=== PATIENT | female | born 1970 | race Caucasian/White ===

== ENCOUNTER 2018-08-04 16:01 | Emergency (ER) | payer BC ==
--- NOTE | 2018-08-04 16:16 | UC ---
Headache HPI - HPI Summary HPI Summary: 48 yo female presents with headache. She tells me that she has a history of migraines and gets them anywhere from 2 to 10 times a month. They usually last 2 -3 days and consist of right sided headache with photophobia and generalized body fatigue. Today she tells me that for the past 5 days she has had a migraine that she describes as "vicious". The headache is located on the right side of her head and radiates to her right ear and right forehead. She reports feeling fatigued and has body wide pain for the last 5 days. She has been eating and drinking well except today she feels that she has a decreased appetite and hasn't wanted to eat anything, but denies nausea. She is diabetic and states her glucose was 193 this afternoon which is good for her as over the last week her glucose has been around 250. Last A1C was 8 - per pt within the last 6 months. Her BP is elevated today and she does have a hx of HTN. She has been taking her BP medication as prescribed. She states that her BP usually goes high when she gets a migraine due to the pain. She has taken her maxalt and fioricet for this migraine with no relief. She denies dizziness, vision changes, weakness, numbness, tingling, SOB, chest pain, palpitations, abdominal pain, vomiting, or injury. She also mentions that she has had pressure over her bladder and urinary frequency for the last 2 days. Denies hematuria, vaginal bleeding or discharge. - History Of Current Complaint Chief Complaint: UCGeneralIllness Stated Complaint: HEADACHE Time Seen by Provider: 08/04/18 16:11 Hx Obtained From: Patient Onset/Duration: Sudden Onset Initially Headache Was: Severe Currently Pain Is: Severe Pain Intensity: 10 Pain Scale Used: 0-10 Numeric - Allergies/Home Medications Allergies/Adverse Reactions: Allergies Allergy/AdvReac Type Severity Reaction Status Date / Time amoxicillin Allergy Intermediate vomitting Verified 08/04/18 16:11 erythromycin base Allergy Intermediate nausea Verified 08/04/18 16:11 vomitting Penicillins Allergy Intermediate vomitting Verified 08/04/18 16:11 Home Medications: Home Medications Atorvastatin* [Lipitor*] 10 mg PO 1700 08/04/18 [History Confirmed 08/04/18] Lisinopril 10 mg PO DAILY WITH MEAL 08/04/18 [History Confirmed 08/04/18] Sertraline* [Zoloft*] 25 mg PO DAILY 08/04/18 [History Confirmed 08/04/18] Topiramate [Topamax] 100 mg PO BID 08/04/18 [History Confirmed 08/04/18] metFORMIN* [Glucophage 500 MG TAB *] 500 mg PO BID 08/04/18 [History Confirmed 08/04/18] PMH/Surg Hx/FS Hx/Imm Hx Endocrine History: Diabetes Cardiovascular History: Hypertension Neurological History: Migraine Psychological History: Anxiety, Depression - Surgical History Surgical History: Yes Surgery Procedure, Year, and Place: APPENDECTOMY, - Social History Lives: With Family Alcohol Use: Rare Substance Use Type: None Smoking Status (MU): Former Smoker Review of Systems All Other Systems Reviewed And Are Negative: Yes Constitutional: Positive: Fatigue Skin: Positive: Negative Eyes: Positive: Negative ENT: Positive: Negative Respiratory: Positive: Negative Cardiovascular: Positive: Negative Gastrointestinal: Positive: Negative Genitourinary: Positive: Dysuria Motor: Positive: Negative Neurovascular: Positive: Negative Musculoskeletal: Positive: Negative Neurological: Positive: Headache Psychological: Positive: Negative Physical Exam - Summary Physical Exam Summary: GENERAL: NAD. WDWN. No pain distress. SKIN: No rashes, sores, ulcers, masses, lesions. HEENT: Head: AT/NC. Eyes: PERRLA. EOM intact. Conjunctiva clear without inflammation or discharge. Ears: Hearing grossly normal. TMs intact, no bulging, erythema, or edema. Nose: Nasal mucosa pink and moist. NTTP maxillary and frontal sinus. Throat: Posterior oropharynx without exudates, erythema, or tonsillar enlargement. Uvula midline. NECK: Supple. Nontender. FROM. No meningismus CHEST: CTAB. No r/r/w. No accessory muscle use. Breathing comfortably and in no distress. CV: RRR. Without m/r/g. Pulses intact. Brisk cap refill. ABDOMEN: Soft. NTTP. Bowel sounds present MSK: FROM in B/L UEs and LEs with symmetric strength. NEURO: A&Ox3. 3 word recall, remote, recent memory, ability to follow 2-step directions, and attention intact. CN: II: Peripheral marquez intact. Vision normal. III, IV, : EOMI. No nystagmus. PERRLA. V: Sensations intact and symmetric. Opens mouth and clenches teeth. VII: No facial asymmetry. Forehead wrinkles. Grins, shuts eyes, frowns, puffs cheeks. VIII: Hearing intact to finger rub. IX, X: Swallows and coughs. Uvula midline. XI: Shrugs shoulders. Turns head against resistance. XII: No tongue deviation [id number] are intact. Gait with normal base. Romberg: maintains balance, no pronator drift. Normal speech. No facial drooping. PSYCH: Age appropriate behavior. Triage Information Reviewed: Yes Vital Signs: Initial Vital Signs Temp 98.1 F 08/04/18 16:06 Pulse 97 08/04/18 16:06 Resp 18 08/04/18 16:06 BP 164/114 08/04/18 16:06 Pulse Ox 97 08/04/18 16:06 Laboratory Tests 08/04/18 16:24 POC Urine Color Yellow POC Urine Clarity Clear POC Urine pH 6.0 POC Ur Specif [place] 1.010 POC Urine Protein Negative POC Ur Glucose (UA) Negative POC Urine Ketones Negative POC Urine Blood Trace-intact A POC Urine Nitrite Negative POC Urine Bilirubin Negative POC Urine Urobilinogen 0.2 POC U Leukocyte Esteras Trace A Vital Signs (72 hours) 08/04/18 08/04/18 08/04/18 16:06 17:28 18:40 Temperature 98.1 F 97.6 F 97.6 F Pulse Rate 97 88 80 Respiratory 18 20 16 Rate Blood Pressure 164/114 138/82 142/84 (mmHg) O2 Sat by Pulse 97 100 100 Oximetry Vital Signs Reviewed: Yes Re-Evaluation - Re-Evaluation First Eval Re-Evaluation Time: 17:26 Change: Unchanged Comment: Received meds ~20 min ago. No change in symptoms. Recheck BP 138/82 manual by RN Second Eval Re-Evaluation Time: 18:20 Change: Improved Comment: Discomfort improved from 12/10 to 8/10. Still with pain in right temporal region. Eating crackers. BP 142/84 Headache Course/Dx - Course Course Of Treatment: At this time ddx most suspicious for migraine/intractable headache vs CVA. Discussed this with pt - she did not want to go to the ER. Given that symptom onset was 5 days ago and her neuro exam is normal without any focal defect and she has no numbness/tingling/weakness. Will obtain CT here to further eval; CT: IMPRESSION: NO ACUTE INTRACRANIAL PATHOLOGY. UA with trace leuks - no protein or ketones or glucose. Discussed results with pt. Will try to improve her symptoms in the clinic with NS 1L, zofran, toradol, and benadryl. Ideally would prefer to give reglan, but she is on zoloft and is diabetic - thus already placing her at an increased risk of TD. On re-eval ~20min after medications, she reported no improvement, but her BP was significantly improved as above. Will continue IVF and recheck. Re-eval after completion of IVF - pt states headache improved from a "12/10 to 8 /10", but is still having a sharp pain in her right temporal area. She is most concerned that she will go home and the headache will not continue to improve, but will worsen and she will not know what to do. I discussed with her the role of narcotic pain medication in migraines/headaches and advised against this due to rebound headache - she is in agreement as she has had this happen to her before. I discussed the case with Dr. Nicole and he suggests having her f/u with her outpatient PCP or neurologist. Given her continued discomfort and the weekend she is concerned about getting an appointment, therefore I advised her to go to the ER for further evaluation. Her son with her today is driving. - Differential Dx/Diagnosis Differential Diagnosis/HQI/PQRI: CVA, Migraine, Sinus Headache, Tension Headache Provider Diagnosis: Headache, UTI (urinary tract infection) Discharge - Sign-Out/Discharge Documenting (check all that apply): Patient Departure All imaging exams completed and their final reports reviewed: Yes - Discharge Plan Condition: Stable Disposition: HOME-RECOMMEND TO ED Prescriptions: Nitrofurantoin Monohyd/M-Cryst [Macrobid 100 mg Capsule] 100 mg PO BID #10 cap Patient Education Materials: Urinary Tract Infection in Women (DC), Migraine Headache (ED) Referrals: Jose Antonio Flores MD [Primary Care Provider] - Additional Instructions: Your migraine was able to be improved in the clinic here today, but you are still experiencing significant discomfort. I recommend that you go to the ER for further evaluation of this. Your urine did show indications of a UTI, therefore we will treat you with an antibiotic (Macrobid). - Billing Disposition and Condition Condition: STABLE Disposition: Home-Recommend to ED
[2018-08-04] MEDS ORDERED: Ketorolac INJ* 30 MG/ML 1 ML VIAL IV PUSH ONE (16:33)
[2018-08-04] MEDS ORDERED: diPHENhydraMINE IV* 50 MG/ML 1 ml VIAL (BENADRYL) IV ONE (16:33)
[2018-08-04] MEDS ORDERED: Ondansetron INJ* 2 MG/ML VIAL IV ONE (16:33)
[2018-08-04] MEDS ORDERED: NS 0.9% 1000 ML** 1,000 ML IV ONE (16:33)
[2018-08-04 18:53] VITALS: BP 142/84
--- NOTE | 2018-08-06 08:34 | UC ---
- Progress Note Progress Note: Urine cx negative, ok to stop antibx. No UTI noted. Course/Dx - Diagnoses Provider Diagnoses: Headache, UTI (urinary tract infection) Discharge - Sign-Out/Discharge Documenting (check all that apply): Post-Discharge Follow Up All imaging exams completed and their final reports reviewed: Yes - Discharge Plan Condition: Stable Disposition: HOME-RECOMMEND TO ED Prescriptions: Nitrofurantoin Monohyd/M-Cryst [Macrobid 100 mg Capsule] 100 mg PO BID #10 cap Patient Education Materials: Urinary Tract Infection in Women (DC), Migraine Headache (ED) Referrals: Jose Antonio Flores MD [Primary Care Provider] - Additional Instructions: Your migraine was able to be improved in the clinic here today, but you are still experiencing significant discomfort. I recommend that you go to the ER for further evaluation of this. Your urine did show indications of a UTI, therefore we will treat you with an antibiotic (Macrobid). - Billing Disposition and Condition Condition: STABLE Disposition: Home-Recommend to ED
== END 2018-08-04 18:42 | disposition home health service (06) ==
LOC: UCEAST 16:01
DX: R51 Headache (principal); N39.0 Urinary tract infection, site not specified; E11.9 Type 2 diabetes mellitus without complications; I10 Essential (primary) hypertension; Z88.0 Allergy status to penicillin; Z88.1 Allergy status to other antibiotic agents; Z79.84 Long term (current) use of oral hypoglycemic drugs; Z87.891 Personal history of nicotine dependence; F41.9 Anxiety disorder, unspecified; F32.9 Major depressive disorder, single episode, unspecified
CPT/HCPCS: 70450; 81003; 87086; 96361; 96365; 96372; 96375; 99202; G0463; J1200; J1885; J2405

== ENCOUNTER 2019-04-08 12:59 | Inpatient (IN) | payer BC ==
--- OUTSIDE RECORDS SUMMARY | 2019-04-08 13:08 | XMS REPORT | Summary of Care ---
:1970 Author Organization [facility] Address [address] [address] Care Team Providers Name Role Phone Jose Antonio Flores Primary Care Provider Reason for Referral Refer to Department Only (Routine) Status Reason Specialty Diagnoses / Referred By Referred To Procedures Contact Contact Authorized PODIATRY / Diagnoses Plantar fasciitis of right foot [facility] MALATHI Cheng [address] [place] [address] Medication Prior Authorization (Routine) Status Reason Specialty Diagnoses / Referred By Referred To Procedures Contact Contact Pending Review Diagnoses Plantar fasciitis of right foot Skylar Torrez NP [address] [place] [address] Reason for Visit Reason Comments Check Up R foot pain x2-3 days, no injury known Encounter Details Date Type Department Care Team Description 03/29/2019 Office Visit Skylar Whaley 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 Inhalation AEROSOL POWDER, BREATH ACTIVATED albuterol HFA Take 2 Puffs by 1 Inhaler 2 03/17/2016 Active (VENTOLIN) 108 (90 inhalation EVERY BASE) MCG/ACT FOUR HOURS Inhalation Aero Soln NEEDED (as needed). SUMAtriptan Succinate Inject 6 mg 3 mL 2 08/05/2018 Active 6 MG/0.5ML beneath the skin Subcutaneous Solution DAILY NEEDED Auto-injectorIndicatio (headache). ns: Intractable migraine with status migrainosus, unspecified migraine type Magnesium 400 MG Oral Take 400 mg by 90 Cap 3 08/08/2018 Active Cap mouth DAILY. amitriptyline (ELAVIL, Take 1 Tab by 90 Tab 1 11/13/2018 Active ENDEP) 25 MG Oral Tab mouth EVERY BEDTIME. quetiapine (SEROQUEL) Take 1 Tab by 90 Tab 0 11/20/2018 Active 100 MG Oral Tab mouth EVERY BEDTIME. topiramate (TOPAMAX) TAKE 1 AND 1/2 270 Tab 1 12/14/2018 Active 100 MG Oral Tab TABLETS BY MOUTH TWICE DAILY AJOVY 225 MG/1.5ML 0 12/22/2018 Active Subcutaneous Solution Prefilled Syringe estrogens, Take 1 Tab by 90 Tab 0 01/06/2019 Active conjugated-medroxyPROG mouth DAILY. ESTERone (PREMPRO) 0.625-2.5 MG Oral Tab TRULICITY 1.5 MG/0.5ML INJECT 0.5 ML 6 mL 1 01/15/2019 Active Subcutaneous Solution BENEATH THE SKIN Pen-injectorIndication EVERY 7 DAYS s: Type 2 diabetes mellitus without complication, without long-term current use of insulin ([facility]) ACCU-CHEK MAGALYS PLUS USE TO CHECK BLOOD 250 Strip 2 01/18/2019 Active In Vitro Strip SUGAR 3 TIMES A DAY (E11.9) Omeprazole delayed rel TAKE 1 CAPSULE BY 180 Cap 1 01/22/2019 Active cap 20 MG Oral CAPSULE MOUTH TWICE A DAY DELAYED RELEASE metoclopramide TAKE 1 TABLET BY 20 Tab 1 02/23/2019 Active (REGLAN) 10 MG Oral MOUTH DIRECTED TabIndications: AT ONSET OF Intractable migraine HEADACHE without status migrainosus, unspecified migraine type tizanidine (ZANAFLEX) Take 1 Tab by 40 Tab 0 02/26/2019 Active 4 MG Oral Tab mouth EVERY SIX HOURS NEEDED (neck pain). atorvastatin (LIPITOR) Take 1 Tab by 90 Tab 1 03/02/2019 Active 20 MG Oral Tab mouth DAILY. sertraline (ZOLOFT) 50 Take 1 Tab by 90 Tab 1 03/02/2019 Active MG Oral Tab mouth DAILY. butalbital-acetaminoph TAKE 1 TAB BY 28 Tab 0 03/12/2019 Active en-caffeine (FIORICET) MOUTH EVERY SIX 50-325-40 MG Oral Tab HOURS NEEDED FOR HEADACHE. Rizatriptan Benzoate Take 1 Tab by 27 Tab 1 03/12/2019 Active 10 MG Oral mouth DIRECTED. TabIndications: At onset of Intractable migraine headache/90 day without status supply migrainosus, unspecified migraine type metFORMIN (GLUCOPHAGE) TAKE 2 TABLETS BY 360 Tab 0 03/26/2019 Active 500 MG Oral Tab MOUTH TWICE A DAY lisinopril (PRINIVIL, TAKE 1 TABLET BY 90 Tab 1 03/29/2019 Active ZESTRIL) 10 MG Oral MOUTH EVERY DAY Tab diclofenac (VOLTAREN) 2 g by Topical 1 Tube 2 03/29/2019 Active 1 % Transdermal route FOUR TIMES GelIndications: DAILY. Plantar fasciitis of right foot documented as of this encounter (statuses as of 03/29/2019) Active Problems Problem Noted Date Diabetes mellitus type 2, without complication 06/02/2017 Depression with anxiety 12/24/2012 Obesity Overview: This patient's BMI This patient's BMI has been calculated and is above average, and BMI management plan is completed. General patient education discussion including: weight loss link to reduction of risk factors for car diac and other diseases, importance of long-term maintenance treatment in weight loss, and accomplish with exercise as tolerated and diet control Unspecified essential hypertension Migraines GERD (gastroesophageal reflux disease) documented as of this encounter (statuses as of 03/29/2019) Resolved Problems Problem Noted Date Resolved Date Uncontrolled type 2 diabetes mellitus without complication, 08/05/20182018 without long-term current use of insulin documented as of this encounter (statuses as of 03/29/2019) Immunizations Name Administration Dates Next Due Influenza (IM) Preservative Free 12/25/2018, 10/31/2017, 11/03/2016, 01/02/2016, 11/22/2012 documented as of this encounter Social History Tobacco Use Types Packs/Day Years Used Date Former Smoker Quit: 06/05/2011 Smokeless Tobacco: Never Used Alcohol Use Drinks/Week oz/Week Comments No Sex Assigned at Date Recorded Not on file documented as of this encounter Last Filed Vital Signs Vital Sign Reading Time Taken Comments Blood Pressure 120/62 03/29/2019 3:47 PM EST Pulse 87 03/29/2019 3:47 PM EST Temperature 36.2 03/29/2019 3:47 PM EST C (97.1 F) Respiratory Rate - - Oxygen Saturation 99% 03/29/2019 3:47 PM EST Inhaled Oxygen Concentration - - Weight 71.7 kg (158 lb) 03/29/2019 3:47 PM EST Height 152.4 cm (5') 03/29/2019 3:47 PM EST Body Mass Index 30.86 03/29/2019 3:47 PM EST documented in this encounter Patient Instructions Patient InstructionsSkylar Torrez NP - 03/29/2019 3:40 PM EST Tylenol and ibuprofen as needed for pain. Diclofenac cream - four times daily as needed. Do not walk around barefoot. Use the tennis ball. Exercises below Splinting overnight (you can get this over the counter). Referral to podiatry - you can schedule this on your way out. Patient Education Plantar Fasciitis Exercises About this topic Plantar fasciitis is swelling of the thick tissue on the bottom of the foot. This tissue is called the plantar fascia. It connects the heel bone to the toes and supports the arch of the foot. Exercise is an important part of making this problem better. General Before starting with a program, ask your doctor if you are healthy enough to do these exercises. Your doctor may have you work with a weight trainer or physical therapist to make a safe exercise program to meet your needs. Stretching Exercises Stretching exercises keep your muscles flexible. They also stop them from getting tight. Start by doing each of these stretches 2 to 3 times. In order for your body to make changes, you will need to hold these stretches for 20 to 30 seconds. Try to do the stretches 2 to 3 times each day. Do all exercises slowly. Calf stretches standing ?? Stand about 12 to 18 inches (30 to 45 cm) away from a wall. Place your hands on the wall at shoulder level. Lean forward. ?? Knee straight - Stretch your left leg straight behind you. Make sure the left heel is flat on thefloor and the left knee is straight. Now, bend the knee of the right leg until you feel a stretch inyour left calf. Be sure that the heel does not come up. Repeat on the other side. ?? Knee bent - Take a small step forward with your left leg so your feet are slightly closer together. With your right leg bent, bend your left knee forward until you feel a stretch in the back of the calf of your left leg. This will feel strange, but it is the best way to stretch this calf muscle. Repeat on the other side. Calf stretches lying down with belt or towel ?? Lie on your back with both legs straight. Loop a belt or towel around the ball of one foot. Lift the leg up , keeping the knee straight until you feel a stretch in the back of your thigh. Pull back on the belt or towel to bend your foot more for a better stretch. Repeat on the other foot. This stretch gets both your calf and the hamstrings on the back of your thigh. Calf stretches on stairs ?? Stand on a step and hold onto a rail. Position your feet so only the balls of your feet are on the step. Lower both heels until you feel a stretch in the back of your calves. Do not do this stretch if you have trouble with balance. Crossed leg foot stretches ?? Sit in a chair. Bend one leg up and rest the outside of the foot on the knee. Grab your foot and pull your toes and foot forward until you feel a stretch along the bottom of your foot. Repeat with the other foot. Rolling foot ?? Use a golf ball, tennis ball, soup can, a frozen water bottle, or a rolling pinfor this exercise. Sit in a sturdy chair. Put the ball, can, or rolling pin underneath your sore foot. Push down firmly and roll it back and forth with your foot for 1 to 2 minutes. Work up to 3 to 4 minutes. If this exercise is too easy, try doing it while standing up with more pressure on the foot. Do this exercise last if you use a frozen water bottle. Heated tissue stretches better than cold tissue. Doing this last with a frozen water bottle can help lessen the pain and swelling that may happen with stretching. Strengthening Exercises Strengthening exercises keep your muscles firm and strong. Start by repeating each exercise 2 to 3 times. Work up to doing each exercise 10 times. Try to do the exercises 2 to 3 times each day. Do all exercises slowly. Towel pick-ups ?? Sit in a chair with your feet flat on the floor. Make sure you do not have shoes or socks on your feet. Place a towel under one foot with one end of the towel lined up with your heel. Keep your heel on the floor and try grabbing the towel with your toes. Gradually work it back until there is no more towel to move. Now, try pushing the towel back out while keeping your heel still. You can make this harder by putting a small weight on the end of the towel. What will the results be? Less pain Less pulling Less swelling Better flexibility and range of motion Easier to walk and do other activities Helpful tips Stay active and work out to keep your muscles strong and flexible. Keep a healthy weight to avoid putting too much stress on your joints. Eat a healthy diet to keep your muscles healthy. Be sure you do not hold your breath when exercising. This can raise your blood pressure. If youtend to hold your breath, try counting out loud when exercising. If any exercise bothers you, stop right away. Always warm up before stretching. Heated muscles stretch much easier than cool muscles. Stretching cool muscles can lead to injury. Try walking or cycling at an easy pace for a few minutes to warm up your muscles. Do this againafter exercising. Never bounce when doing stretches. Doing exercises before a meal may be a good way to get into a routine. After exercising, it is a good idea to ice the bottom of your foot. A good way to do this is bysitting in a chair and rolling a frozen water bottle back and forth under your foot. Do not do this longer than 15 to 20 minutes. Exercise may be slightly uncomfortable, but you should not have sharp pains. If you do get sharp pains, stop what you are doing. If the sharp pains continue, call your doctor. Last Reviewed Date 2018-11-06 Consumer Information Use and Disclaimer This information is not specific medical advice and does not replace information you receive from your health care provider. This is only a brief summary of general information. It does NOT include allinformation about conditions, illnesses, injuries, tests, procedures, treatments, therapies, discharge instructions or life-style choices that may apply to you. You must talk with your health care provider for complete information about your health and treatment options. This information should not beused to decide whether or not to accept your health care provider?s advice, instructions or recommendations. Only your health care provider has the knowledge and training to provide advice that is right for you. Copyright Copyright 2019 [employer] and its affiliates and/or licensors. All rights reserved. documented in this encounter Progress Notes Skylar Torrez NP - 03/29/2019 3:40 PM EST PATIENT: Vashti Chávez : 1970 DATE OF SERVICE: 03/29/2019 CHIEF COMPLAINT: Chief Complaint Patient presents with ? Check Up R foot pain x2-3 days, no injury known Subjective HISTORY OF PRESENT ILLNESS: Vashti Chávez is a 48-y.o. female. HPI Sudden onset of right foot pain 2-3 days ago, no injury, not sure what she was doing when it started. Started in center of bottom foot and spreading, painful to put pressure on and to walk. Pain in bottom of foot mid section. Worse after sitting for any length of time, most painful when she first gets up. Never had issues like this in the past. At night starts to radiate into her ankle and leg. Full ROM, and no pain with movement. Ibuprofen not helping. Past Medical History: Diagnosis Date ? Asthma ? Colon cancer screening 01/2019 negative cologuard ? Depression ? GERD (gastroesophageal reflux disease) ? Hemorrhoids ? Migraines ? Obesity ? Other postprocedural status(V45.89) biopsy on both breast can not recallhow long ago ? Pre-diabetes ? Unspecified essential hypertension Family History Problem Relation Age of Onset ? Hypertension Unknown ? Diabetes Unknown ? Colon Cancer Unknown uncle ? Osteoporosis Mother ? Cancer Unknown Brain Current Outpatient Medications Medication Sig ? ACCU-CHEK MAGALYS PLUS In Vitro Strip USE TO CHECK BLOOD SUGAR 3 TIMES A DAY (E11.9) ? AJOVY 225 MG/1.5ML Subcutaneous Solution Prefilled Syringe ? albuterol HFA (VENTOLIN) 108 (90 BASE) MCG/ACT Inhalation Aero Soln Take 2 Puffs by inhalation EVERY FOUR HOURS NEEDED (as needed). ? amitriptyline (ELAVIL, ENDEP) 25 MG Oral Tab Take 1 Tab by mouth EVERY BEDTIME. ? atorvastatin (LIPITOR) 20 MG Oral Tab Take 1 Tab by mouth DAILY. ? utidnnlfvo-rjermgliyctuy-hhxncwgm (FIORICET) 50-325-40 MG Oral Tab TAKE 1 TAB BY MOUTH EVERYSIX HOURS NEEDED FOR HEADACHE. ? diclofenac (VOLTAREN) 1 % Transdermal Gel 2 g by Topical route FOUR TIMES DAILY. ? estrogens, conjugated-medroxyPROGESTERone (PREMPRO) 0.625-2.5 MG Oral Tab Take 1 Tab by mouth DAILY. ? fluticasone-salmeterol diskus (ADVAIR DISKUS) 250-50 MCG/DOSE Inhalation AEROSOL POWDER, BREATH ACTIVATED Take 1 INHL by inhalation TWICE DAILY. ? lisinopril (PRINIVIL, ZESTRIL) 10 MG Oral Tab TAKE 1 TABLET BY MOUTH EVERY DAY ? Magnesium 400 MG Oral Cap Take 400 mg by mouth DAILY. ? metFORMIN (GLUCOPHAGE) 500 MG Oral Tab TAKE 2 TABLETS BY MOUTH TWICE A DAY ? metoclopramide (REGLAN) 10 MG Oral Tab TAKE 1 TABLET BY MOUTH DIRECTED AT ONSET OF HEADACHE ? Omeprazole delayed rel cap 20 MG Oral CAPSULE DELAYED RELEASE TAKE 1 CAPSULE BY MOUTH TWICE A DAY ? quetiapine (SEROQUEL) 100 MG Oral Tab Take 1 Tab by mouth EVERY BEDTIME. ? Rizatriptan Benzoate 10 MG Oral Tab Take 1 Tab by mouth DIRECTED. At onset of headache/ supply ? sertraline (ZOLOFT) 50 MG Oral Tab Take 1 Tab by mouth DAILY. ? SUMAtriptan Succinate 6 MG/0.5ML Subcutaneous Solution Auto-injector Inject 6 mg beneath theskin DAILY NEEDED (headache). ? tizanidine (ZANAFLEX) 4 MG Oral Tab Take 1 Tab by mouth EVERY SIX HOURS NEEDED (neck pain). ? topiramate (TOPAMAX) 100 MG Oral Tab TAKE 1 AND 1/2 TABLETS BY MOUTH TWICE DAILY ? TRULICITY 1.5 MG/0.5ML Subcutaneous Solution Pen-injector INJECT 0.5 ML BENEATH THE SKIN EVERY 7 DAYS No current facility-administered medications for this visit. Allergies Allergen Reactions ? Erythromycin Other emesis ? Penicillin G Other emesis Social History Socioeconomic History ? Marital status: Spouse name: Not on file ? Number of children: Not on file ? Years of education: Not on file ? Highest education level: Not on file Occupational History ? Not on file Social Needs ? Financial resource strain: Not on file ? Food insecurity Worry: Not on file Inability: Not on file ? Transportation needs Medical: Not on file Non-medical: Not on file Tobacco Use ? Smoking status: Former Smoker Last attempt to quit: 06/05/2011 Years since quittin.8 ? Smokeless tobacco: Never Used Substance and Sexual Activity ? Alcohol use: No ? Drug use: No ? Sexual activity: Not on file Lifestyle ? Physical activity Days per week: Not on file Minutes per session: Not on file ? Stress: Not on file Relationships ? Social connections Talks on phone: Not on file Gets together: Not on file Attends shinto service: Not on file Active member of club or organization: Not on file Attends meetings of clubs or organizations: Not on file Relationship status: Not on file ? Intimate partner violence Fear of current or ex partner: Not on file Emotionally abused: Not on file Physically abused: Not on file Forced sexual activity: Not on file Other Topics Concern ? Back Care Not Asked ? Bike Helmet Not Asked ? Blood Transfusions Not Asked ? Caffeine Concern Not Asked ? Exercise Not Asked ? Hobby Hazards Not Asked ? International Travel Not Asked ? Service Not Asked ? Occupational Exposure Not Asked ? Seat Belt Not Asked ? Self-Exams Not Asked ? Sleep Concern Not Asked ? Special Diet Not Asked ? Stress Concern Not Asked ? Weight Concern Not Asked Social History Narrative ? Not on file REVIEW OF SYSTEMS: Review of Systems Constitutional: Negative for chills, fever and malaise/fatigue. Musculoskeletal: Positive for joint pain (see hpi). Skin: Negative for itching and rash. Neurological: Negative for tingling and sensory change. Objective PHYSICAL EXAM: VITALS: BP 120/62 (BP Location: Left arm, Patient Position: Sitting) | Pulse 87 | Temp 97.1 F(36.2 C) (Tympanic) | Ht 5' (1.524 m) | Wt 158 lb ( 71.7 kg) | SpO2 99% | BMI 30.86 kg/mBody mass index is 30.86 kg/m. Physical Exam Vitals signs and nursing note reviewed. Constitutional: Appearance: Normal appearance. Cardiovascular: Pulses: Dorsalis pedis pulses are 2+ on the right side. Musculoskeletal: Right foot: Normal range of motion and normal capillary refill. Tenderness present. No bony tenderness, swelling, crepitus, deformity, laceration, bunion, Charcot foot, foot drop or prominent metatarsal heads. Feet: Feet: Right foot: Protective Sensation: 9 sites tested. 9 sites sensed. Skin integrity: Skin integrity normal. Toenail Condition: Right toenails are normal. Neurological: General: No focal deficit present. Mental Status: She is alert. Sensory: No sensory deficit. Psychiatric: Mood and Affect: Mood normal. Behavior: Behavior normal. Behavior is cooperative. Thought Content: Thought content normal. Judgment: Judgment normal. ASSESSMENT / IMPRESSION: ICD-9-CM ICD-10-CM 1. Plantar fasciitis of right foot 728.71 M72.2 diclofenac (VOLTAREN) 1 % Transdermal Gel REFER TO PODIATRY Plan 1. Plantar fasciitis of right foot Tylenol and ibuprofen as needed for pain. Diclofenac cream - four times daily as needed. Do not walk around barefoot. Use the tennis ball. Exercises below Splinting overnight (you can get this over the counter). Referral to podiatry - you can schedule this on your way out. - diclofenac (VOLTAREN) 1 % Transdermal Gel; 2 g by Topical route FOUR TIMES DAILY. Dispense: 1 Tube; Refill: 2 - REFER TO PODIATRY; Future Author: Skylar Torrez NP 03/29/2019 16:18 documented in this encounter Plan of Treatment Date Type Specialty Care Team Description 05/05/2019 Lab Internal Medicine 05/16/2019 Office Visit Family Practice Jose Antonio Flores MD [address] [place] [address] [phone] Name Type Priority Associated Diagnoses Order Schedule REFER TO PODIATRY Referral Routine Plantar fasciitis of right Expected: , foot Expires: 03/29/2020 Health Maintenance Due Date Last Done Comments PNEUMOCOCCAL 0-64 YRS (1 of 1974 1 - PPSV23) DTaP/Tdap/Td Vaccines ( - 06/17/1979 Tdap) PAP SMEAR 1989 MAMMOGRAM (SCREENING) 06/11/2014 06/11/2013, 12/25/2012, 11/22/2012 Colonoscopy 2018 ZOSTER IMMUNIZATION SERIES 2018 (1 of 2) HEMOGLOBIN A1C 04/01/2019 12/30/2018, 09/16/2018, 03/25/2018, Additional history exists DEPRESSION SCREENING 12/28/2019 12/27/2018 FOOT EXAM 12/28/2019 12/27/2018, 12/27/2018, 11/16/2017 LIPID DISORDER SCREENING 03/02/2020 03/02/2019, 09/16/2018, 03/25/2018, Additional history exists Diabetic Eye Exam 10/27/2020 10/27/2018, 07/21/2017 Cologuard Screening 02/02/2022 02/02/2019 INFLUENZA VACCINE Completed 12/25/2018, 10/31/2017, 11/03/2016, Additional history exists HEPATITIS A IMMUNIZATION Aged Out No longer eligible SERIES based on patient's age to complete this topic HPV IMMUNIZATION SERIES Aged Out No longer eligible based on patient's age to complete this topic MENINGOCOCCAL VACCINE IMM Aged Out No longer eligible based on patient's age to complete this topic documented as of this encounter Goals Goal Patient Goal Associated Recent Patient-Stated? Author Type Problems Progress Blood Pressure Blood Pressure 120/62 No Sandra, < 140/90 (03/29/2019 MD Jose Antonio 3:47 PM EST) Note: This is an individualized treatment (blood pressure) goal for Vashti Chávez: Displayed above (on the left) is your goal for blood pressure control. Your most recent blood pressure is also shown above, on the right. You should try to achieve blood pressures that are lower than your goal listed above (on the left). Depression screen (PHQ-9) total score < 5 Depression No Rolan Mccarthy MD Note: This is an individualized treatment (depression) goal for Vashti Chávez: Displayed above is your goal for a depression screening (PHQ-9) score that would indicate good control of your depression. Glycohemoglobin A1c < 7.0 Diabetes 7.7 (12/30/2018 11:27 AM No Jose Antonio Flores MD EST) Note: This is an individualized treatment (diabetes control, HgbA1C) goal for Vashti Chávez: Displayed above is your progress towards your HgbA1C goal. Your goal is shown above (on the left); your most recent HgbA1C is shown on the right. Note that lower numbers are better. Weight loss vs. 18 mo Lifestyle 1.4 (03/29/2019 3:47 PM EST) No Jose Antonio Flores MD max (lbs) >= 10 Note: This is an individualized lifestyle goal for Vashti Chávez: Your body mass index (BMI) is more than 30. You should lose weight. A reasonable starting goal is to lose 10 pounds. Displayed above is how many pounds you have lost thus far towards your 10 pound weight loss goal. Keep immunizations current Lifestyle No Jose Antonio Flores MD Note: This is an individualized lifestyle goal for Vashti Chávez: Please be sure to keep up-to-date on recommended immunizations. For example, this would include a yearly influenza vaccine. Immunization status can be seen by looking at the Health Maintenance sections of your [facility], Plan of Care, and any After Visit Summaries. Keep a regular sleep schedule Lifestyle No Rolan Mccarthy MD Note: This is an individualized lifestyle goal for Vashti Chávez: Please maintain a regular sleep schedule. This may help with some symptoms of depression. Take all prescribed medications as directed Self-management No Jose Antonio Flores MD Note: This is an individualized self-management goal for Vashti Chávez: Please take all prescribed medications as directed. 1. Do not skip doses. If you cannot afford your medications, talk with your doctor. 2. Use a pill reminder system such as a pill box if needed. Your pharmacist can help you with this. 3. Contact your Pharmacy 5 days before your medication runs out. If you cannot take your medications for any reasons, talk with your doctor. 4. Please bring all of your medication bottles and inhalers (or a list of all your medications/inhalers) with you to every visit. Potential barriers to meeting all of your care plan goals will continue to be addressed on an ongoing basis. documented as of this encounter Results Not on filedocumented in this encounter Visit Diagnoses Diagnosis Plantar fasciitis of right foot Plantar fascial fibromatosis documented in this encounter Insurance Payer Benefit Plan / Subscriber ID Effective Dates Phone Address Type Group [facility] [id number] 2015-[place] Blue t Cross/Blue Shield Guarantor Name Account Type Relation to Date of Phone Billing Patient Address Vashti hCávez Personal/Family 1970 [phone] [id number] [facility] [address] (Home) [address], [place] (Work) [phone] documented as of this encounter"
[2019-04-08] MEDS ORDERED: NS 0.9% 1000 ML** 1,000 ML IV ONE ×3 (13:09→14:03)
[2019-04-08] MEDS ORDERED: Cefepime(*) 1 GM in NS 0.9% 50 ML* 50 ML IVPB ONE (13:13)
--- NOTE | 2019-04-08 13:22 | ED ---
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 Pt was with her sitting in a chair when she began shivering with her eyes open. Pt was slightly confused after waking up and has no hx of sz. She was A&Ox3 when EMS arrived as well as in the room. Pt endorses weakness, tingling in her right arm, dyspnea, neck pain, and diarrhea, but notes the diarrhea is chronic. Pt denies N/V, fever, and cough. Pt has hx of Type II DM and HTN, but no hx of DKA. Medications reviewed. Allergies noted. Home Medications Medication Instructions Recorded Confirmed Type Atorvastatin* [Lipitor*] 10 mg PO 1700 08/04/18 08/04/18 History Nitrofurantoin Monohyd/M-Cryst 100 mg PO BID #10 cap 08/04/18 Rx [Macrobid 100 mg Capsule] Sertraline* [Zoloft*] 25 mg PO DAILY 08/04/18 08/04/18 History Topiramate [Topamax] 100 mg PO BID 08/04/18 08/04/18 History lisinopriL [Lisinopril] 10 mg PO DAILY WITH MEAL 08/04/18 08/04/18 History metFORMIN* [Glucophage 500 MG TAB 500 mg PO BID 08/04/18 08/04/18 History *] - History Of Current Complaint Time Seen by Provider: 04/08/19 13:00 Hx Obtained From: Patient, Family/Apron Man, EMS Onset/Duration: Still Present Timing: Intermittent, Lasting: - 10s once Location: Pain At: - neck Associated Signs And Symptoms: Positive: Confusion, Weakness, Diarrhea, Other - dyspnea, tingling in right arm. Negative: Nausea, Vomiting - Allergies/Home Medications Allergies/Adverse Reactions: Allergies Allergy/AdvReac Type Severity Reaction Status Date / Time amoxicillin Allergy Intermediate vomitting Verified 08/04/18 16:11 erythromycin base Allergy Intermediate nausea Verified 08/04/18 16:11 vomitting Penicillins Allergy Intermediate vomitting Verified 08/04/18 16:11 Home Medications: Home Medications Atorvastatin* [Lipitor*] 10 mg PO 1700 08/04/18 [History Confirmed 08/04/18] Nitrofurantoin Monohyd/M-Cryst [Macrobid 100 mg Capsule] 100 mg PO BID #10 cap 08/04/18 [Rx] Sertraline* [Zoloft*] 25 mg PO DAILY 08/04/18 [History Confirmed 08/04/18] Topiramate [Topamax] 100 mg PO BID 08/04/18 [History Confirmed 08/04/18] lisinopriL [Lisinopril] 10 mg PO DAILY WITH MEAL 08/04/18 [History Confirmed ] metFORMIN* [Glucophage 500 MG TAB *] 500 mg PO BID 08/04/18 [History Confirmed 08/04/18] PMH/Surg Hx/FS Hx/Imm Hx Endocrine/Hematology History: Reports: Hx Diabetes Denies: Hx Thyroid Disease Cardiovascular History: Reports: Hx Hypertension, Other Cardiovascular Problems/ Disorders - HX HTN Respiratory History: Denies: Hx Asthma, Hx Chronic Obstructive Pulmonary Disease (COPD) GI History: Reports: Other GI Disorders - HX GERD Denies: Hx Ulcer History: Denies: Hx Renal Disease - Surgical History Surgery Procedure, Year, and Place: APPENDECTOMY, Infectious Disease History: Denies: Hx Hepatitis, Hx Human Immunodeficiency Virus (HIV), Traveled Outside the [place] in Last 30 Days - Family History Known Family History: Positive: Diabetes - half brother, Other - COPD, cx in head - Social History Alcohol Use: Rare Substance Use Type: Reports: None Hx Tobacco Use: Yes Smoking Status (MU): Former Smoker Review of Systems Positive: Other - dyspnea Positive: Diarrhea. Negative: Vomiting, Nausea Positive: Other - neck pain Neurological/Mental Status: Other - confusion Positive: Weakness, Paresthesia - right arm All Other Systems Reviewed And Are Negative: Yes Physical Exam - Summary Physical Exam Summary: Constitutional: Diaphoretic, Alert. (+) Mildly distressed Skin: cool, dry HENT: Normocephalic; Atraumatic Eyes: Conjunctiva normal Neck: Musculoskeletal ROM normal neck. (-) JVD, (-) Stridor, (-) Tracheal deviation Cardio: Rhythm regular, tachypnic, Heart sounds normal; Intact distal pulses; Radial pulses are 2+ and symmetric. (-) Murmur Pulmonary/Chest wall: Effort normal. (-) Respiratory distress, (-) Wheezes, (-) Rales Abd: Soft, (-) tenderness, (-) Distension, (-) Guarding, (-) Rebound Musculoskeletal: (-) Edema, Good pulses bilaterally in radius, No calf tenderness, No venous cords, No pain with dorsiflexion of foot. Lymph: (-) Cervical adenopathy Neuro: Alert, Oriented x3 Psych: Mood and affect Normal Triage Information Reviewed: Yes Vital Signs Reviewed: Yes Procedures - Sedation Patient Received Moderate/Deep Sedation with Procedure: No Diagnostics - Laboratory Result Diagrams: 04/08/19 13:39 04/08/19 13:39 Lab Statement: Any lab studies that have been ordered have been reviewed, and results considered in the medical decision making process. - Radiology cxr Radiology Interpretation Completed By: Radiologist Summary of Radiographic Findings: IMPRESSION: No radiographic evidence for acute cardiopulmonary abnormality on this. portable chest x-ray. This report was reviewed by the ED physician. - EKG 1325 Cardiac Rate: NL EKG Rhythm: Sinus Rhythm Summary of EKG Findings: EKG at 1325 shows NSR at 95bpm. QTC 512 which is new when compared to prior. No STEMI. This EKG was reviewed and interpreted by the ED physician. Re-Evaluation - Re-Evaluation First Eval Re-Evaluation Time: 14:03 Comment: Pt initially responded to fluids, but is now severely hypotensive. Will try a third liter of fluid and norepinephrine. Complex Multi-Symp Course/Dx Course Of Treatment: Patient is here with septic shock. Patient started having symptoms today. Patient was treated for UTI 10 days ago which could be a source of her infection. Upon arrival here, patient was markedly hypotensive and hypothermic. Patient was newly started on IV fluids and placed on the bear hugger. Patient had blood work performed including blood cultures which showed a lactate of 5.8, leukocytosis, hypocalcemia, hypomagnesemia. Patient was given a total of 3 L of IV fluid, 2 g of IV magnesium, and 1 g of IV calcium. Patient did have EKG changes with a prolonged QTC. Patient's glucose was 365 but she had an anion gap of 13. I do not believe this represents DKA. Patient was treated empirically with cefepime. Patient had negative rapid influenza and chest x-ray. Patient remained hypotensive so ICU was called. They did not want to start pressors at this time but admitted patient on their service. - Diagnoses Provider Diagnoses: Hypocalcemia, Septic shock, Elevated troponin, Hypomagnesemia, Hyperglycemia, Acidemia - Physician Notifications Discussed Care Of Patient With: Saleem Cano Time Discussed With Above Provider: 14:36 Instructed by Provider To: Other - Pt case was discussed with Dr. Cano, who will admit the pt to the ICU. - Critical Care Time Critical Care Time: 75-104 min - 90 Discharge ED - Sign-Out/Discharge Documenting (check all that apply): Patient Departure - admit - Discharge Plan Condition: Stable Disposition: ADMITTED TO [facility] - Billing Disposition and Condition Condition: STABLE Disposition: Admitted to [facility] - Attestation Statements Document Initiated by Amaliae: Yes Documenting Scribe: Alfredo Ott Provider For Whom Destiny is Documenting (Include Credential): Wyatt Cameron MD Scribe Attestation: Alfredo Welsh, scribed for Waytt Cameron MD on 04/08/19 at 1747. Scribe Documentation Reviewed: Yes Provider Attestation: The documentation as recorded by the Alfredo mejia accurately reflects the service I personally performed and the decisions made by Wyatt ceja MD Status of Scribe Document: Viewed
[2019-04-08] MEDS ORDERED: Cefepime 1 GM in Dextrose(*) 1 GM/50 ML q12h (Duplex) IV ONE (13:30)
[2019-04-08 13:49] LABS: ABS Monocytes 0.5 10^3/ul (0-0.8); ABS Neutrophils 10.9 10^3/ul (1.5-7.7); Eosinophil % 0.3 %; Hematocrit 33 % (35-47); Hemoglobin 10.2 g/dL (12.0-16.0); Mean Corpuscular HGB Conc 31 g/dL (31-36); Mean Corpuscular Hemoglobin 26 pg (27-31); Mean Corpuscular Volume 83 fL (80-97); Mean Platelet Volume 7.2 fL (7.4-10.4); Platelet Count 168 10^3/uL (150-450); Red Blood Count 3.96 10^6 /uL (3.70-4.87); Red Cell Distribution Width 18 % (10-15); White Blood Count 13.4 10^3/uL (3.5-10.8)
[2019-04-08 14:06] LABS: ALT 37 U/L (7-52); AST 42 U/L (13-39); Albumin/Globulin Ratio 1.4 (1-3); Alkaline Phosphatase 79 U/L (34-104); BUN/Creatinine Ratio 18.4 (8-20); Blood Urea Nitrogen 18 mg/dL (6-24); Calcium 7.2 mg/dL (8.6-10.3); EGFR African American 72.7 (>60); EGFR Non-African American 60.1 (>60); Globulin 2.2 g/dL (2-4); Glucose 365 mg/dL (70-100); Magnesium 1.7 mg/dL (1.9-2.7); Sodium 139 mmol/L (135-145); Total Protein 5.2 g/dL (6.4-8.9)
[2019-04-08 14:07] LABS: Chloride 116 mmol/L (101-111)
[2019-04-08 14:10] LABS: Anion Gap 13 mmol/L (2-11); CO2 Carbon Dioxide 10 mmol/L (22-32); Troponin I 0.09 ng/mL (<0.03)
[2019-04-08] MEDS ORDERED: Magnesium Sulfate 2 GM IV* 2 GM/50 ML BAG IVPB ONE (14:10)
[2019-04-08] MEDS ORDERED: CALCIUM GLUCONATE 1GM/50ML NS 1 GM/50 ML BAG IV ONE (14:11)
[2019-04-08 14:15] LABS: Influenza A Molecular Negative (Negative); Influenza B Molecular Negative (Negative)
[2019-04-08] MEDS ORDERED: NS 0.9% 1000 ML** 2,000 ML IV ONE (14:59)
[2019-04-08] MEDS ORDERED: Norepinephrine 16MCG/ML IVPRE* 4,000 MCG/250 ML BAG IV SCH (15:00)
[2019-04-08] MEDS ORDERED: Dextrose 50% Syringe 50 ML* 25 GM/50 ML SYRINGE IV PUSH PRN (15:09)
[2019-04-08] MEDS ORDERED: Acetaminophen TAB* 325 MG PO ONE (15:34)
[2019-04-08] MEDS ORDERED: Albuterol/Ipratropium NEB.SOL* Albuterol 2.5 MG/Ipratropium 0.5 MG 3 ML INH PRN (15:48)
--- NOTE | 2019-04-08 15:53 | PN ---
Sepsis Event Evaluation Date of Evaluation: 04/08/19 Time of Evaluation: 15:50 - 4.5 liters in Current Stage of Sepsis: Severe Sepsis Vital Signs - Last 12 Hours: Vital Signs - 12 hr Temp Pulse Resp BP Pulse Ox 04/08/19 15:12 92 21 88/70 98 04/08/19 15:02 91 21 90/65 100 04/08/19 15:00 91 17 100 04/08/19 14:51 88 19 79/60 99 04/08/19 14:41 87 19 81/58 99 04/08/19 14:33 34.4 C 87/63 04/08/19 14:31 90 18 87/63 99 04/08/19 14:21 92 19 80/67 100 04/08/19 14:08 95 22 76/58 100 04/08/19 14:06 92 20 100 04/08/19 13:55 95 20 68/56 100 04/08/19 13:40 33.8 C 95 20 80/58 98 04/08/19 13:37 93 23 64/54 04/08/19 13:32 95 21 67/48 04/08/19 13:18 102 21 66/45 95 04/08/19 13:16 32.7 C 100 24 66/45 98 04/08/19 13:08 32.8 C 99 24 74/50 98 Lactic Acid: 04/08/19 13:39 Lactic Acid 5.8 H* - Cardiopulmonary Exam Capillary Refill: Immediate Respiratory: Symmetrical Chest Expansion and Respiratory Effort, - - wheeze bilat Cardiovascular: NL Sounds; No Murmurs; No JVD, RRR - Peripheral Pulse Exam Radial Pulses: Bilateral Normal Pedal Pulses: Bilateral Normal - Skin Exam Skin Exam: Normal Turgor, [place] - Marcial Coma Scale Best Eye Response: 4 - Spontaneous Best Motor Response: 6 - Obeys Commands Best Verbal Response: 5 - Oriented Coma Scale Total: 15 Assess/Plan/Problems-Billing Assessment: Improving severe sepsis / septic shock. Now 100/60 with HR 90's and off the warming blanket. Continue Abx and time. Slow down fluids from bolus to 100cc/hr and give Duoneb. I do not appreciate rales but the wheeze is new on left since I saw her and could be fluid just as easily as reactive airway. No dyspnea. Clearly improved overall.
[2019-04-08 16:02] LABS: Troponin I 0.07 ng/mL (<0.03)
[2019-04-08] MEDS: Lactated Ringers 1000 ML Bag* 1,000 ML IV SCH (16:23)
[2019-04-08 18:32] LABS: Urine Appearance Clear; Urine Bilirubin Negative (Negative); Urine Blood Negative (Negative); Urine Color Yellow; Urine Glucose 2+(150 mg/dL) (Negative); Urine Ketones Negative (Negative); Urine Nitrite Negative (Negative); Urine Protein 2+(100 mg/dL) (Negative); Urine Specific Gravity 1.017 (1.010-1.030); Urine Urobilinogen Negative (Negative)
[2019-04-08 18:36] LABS: Urine Bacteria Absent (Absent); Urine Granular Casts Present (Absent); Urine Red Blood Cell Absent (Absent); Urine Squamous Epithelial Cell Present (Absent); Urine White Blood Cell Trace(0-5/hpf) (Absent)
[2019-04-08] MEDS: Insulin LISPRO* 1 UNITS UNIT SUBCUT SCH ×2 (18:43→23:52)
--- NOTE | 2019-04-08 19:25 | HP ---
CRITICAL CARE ADMISSION NOTE: DATE OF ADMISSION: 04/08/19 HISTORY OF PRESENT ILLNESS: The patient is a 48-year-old female with past medical history of type 2 diabetes and hypertension who presents to the emergency department after a witnessed event at home best described as shaking activity with eyes open. Family decided at that time to take the patient to her primary care physician, and when they went to stand her up, she became limp , they sat her back down, she immediately awoke. They called 911 and she was brought to the emergency department. She reports she felt some weakness and tingling. She had had some shortness of breath and some vague chest discomfort in the ambulance, but that was gone at that time. She does report she had had some neck pain and diarrhea, but notes that the diarrhea is more chronic than acute. She denied nausea, vomiting, fever, or cough. Denied abdominal discomfort. Denies active chest pain or shortness of breath. She is found to be profoundly hypotensive and hypothermic for which a septic management plan was initiated and ICU consultation was requested for further workup and management. On my arrival at the bedside, she endorses the above complaints. She notes that she has some pain in her neck but that is only since she has been placed in deep Trendelenburg. She had full range of motion for me. She reports her tingling in her arm has resolved. She does have some pain in the left antecubital fossa, but she also has an 18-gauge IV in her left antecubital fossa. I palpated the area. She does not seem to be infiltrating. The IV is running well, and distally, the hand has excellent pulse, motor, and sensory. She is unable to get the significant localizing complaint other than a history of a recent outpatient diagnosis of UTI for which she received some antibiotics. She reports she has not been eating or drinking to any great extent over the last 48 to 72 hours. PAST MEDICAL HISTORY: Significant for type 2 diabetes, hypertension, depression , and hyperlipidemia. PAST SURGICAL HISTORY: She has a history of appendectomy and . She denies history of hepatitis or HIV or travel outside the [place] in the last 30 days. MEDICATIONS: Her medication list at home includes: 1. Lipitor 10 mg daily. 2. Macrobid 100 mg p.o. b.i.d. 3. Zoloft 25 mg daily. 4. Topamax 100 mg p.o. b.i.d. 5. Lisinopril 10 mg daily. 6. Metformin 500 mg p.o. b.i.d. ALLERGIES: She has recorded drug allergy to PENICILLINS apparently when she was younger. She reports as a trialed she had some nausea and vomiting with PENICILLINS, but nothing since then. She reports she has not re-challenged that medication class. FAMILY HISTORY: Positive for diabetes in her brother as well as COPD and brain cancer. SOCIAL HISTORY: She is . She is seen with her son and at the bedside. She is a former smoker. She is generally independent of activities of daily living. She reports she does not drink alcohol to excess. REVIEW OF SYSTEMS: Detailed in HPI. Additionally, she denies productive cough , fever, or chills; focal motor weakness; visual change; or headache. She denies hemoptysis or hematemesis. She reports compliance with the medication regimen. She reports that her blood sugar is usually in the 100s, today it was 300 and this was unusual for her. She denies a history of COPD or other diagnosed respiratory disorders. PHYSICAL EXAMINATION GENERAL: She is a well-developed, obese white female, in no acute distress despite her being in Trendelenburg and under a warming blanket. VITAL SIGNS: She presents with a temperature of 91 degrees, blood pressure is lowest 60/40, heart rate in the low 100s and sinus, respiratory rate in the teens to 20s, saturating high 90s to 100% on room air. HEENT: Normocephalic, atraumatic. Pupils equal reactive to light. NECK: Supple for me with some vague tenderness palpable across the entire muscle belly of splenius capitis bilaterally and into the trapezius bilaterally , but with full range of motion left to right and chin to chest. She had no JVD. LUNGS: She had small expiratory wheeze on the right. HEART: She has S1, S2 regular at that time heart rate in the 80s, I did not appreciate a murmur. ABDOMEN: Soft, obese, nontender, nondistended, positive bowel sounds. EXTREMITIES: Lower extremities without edema. NEUROLOGIC: She is alert and oriented x3 and grossly nonfocal SKIN: Poor turgor. She had some vague erythema at the base of her neck anteriorly. She denied any pruritus. DIAGNOSTIC STUDIES/LAB DATA: With laboratory evaluations revealing a white blood cell count of 13 with a hemoglobin of 10 and a platelet count of 168. She had no bands. She had a VBG which was 7.17, pCO2 of 25, pO2 of 68 on room air. Chemistries revealed serum sodium 139, potassium 4, chloride 116, bicarb 10 for an anion gap of 13, BUN and creatinine 18/1 with a glucose of 365, lactic acid is 5.8, calcium 7, mag 1.7. Total bili was normal. AST, ALT essentially normal. Alk phos normal. Troponin 0.09. Rapid flu was negative times A and B. Chest x-ray without effusion or infiltrate. EKG sinus rhythm and a rate of 95. Perhaps an isolated flipped T in V3, but she is upright in V2 as well as V4. Normal axis, rate of 95. Slightly prolonged QTc at 512 for which she received some mag in ED. Overall, EKG is grossly nonischemic. ASSESSMENT AND PLAN: This 48-year-old female with recent outpatient diagnosed urinary tract infection has not made any urine force yet here so we have no objective data. She denies any localizing symptoms. She was brought to the hospital for what appears to be postural near syncope and rigors. She was found to be profoundly hypothermic, constellation of findings most consistent with septic shock. She has been given broad antibiotics, which we will continue. I have just ordered for her fourth and fifth liter of fluid. She remains on room air with clear lungs and a clear chest x-ray with a plenty of room from volume. She is 80/60 with a heart rate in the 80s. We are now taking off the David Hugger, she has temperature in the mid 97s. I do believe this is going to be septic shock secondary to urinary tract infection as I have no other localizing symptoms or findings on exam and everything else that we do have subjective is negative thus far. Certainly, she is hyperglycemic, but without anion gap. It is hard to invoke diabetic ketoacidosis. In any event, the treatment will be similar and she will be receiving some insulin for her hyperglycemia, and certainly, she is receiving a lot of fluid for her hypovolemic shock. Hopefully , the urine will provide more definitive closure to this question, but in any event she seems to be improving over the last couple of hours since ED presentation. We will continue to follow serial lactate. I do believe she had some demand ischemia, which is not surprising in a 48-year-old female, diabetic , whose blood pressure was 60/40. EKG at this time is un-actionable. I have ordered an echo for tomorrow. I recommended that she get a stress test subacutely, and certainly, we will follow her troponins to assure that they clear, but not I am not anticipating concomitant acute coronary syndrome. Hopefully in the coming hours, she will continue to have the same serial improvement she has had so far and we will be able to get her out of bed and moving as soon as tomorrow morning. This has been discussed in detail with the patient as well as with her family, who voiced understanding and appreciation for the care. TIME SPENT: The aggregate time providing critical care as well as personally interpreting multiple laboratory evaluations, imaging studies, reviewing the medical records, and discussing the case with other physicians including Dr. Cameron, the ED attending, has thus far exceeded 40 minutes. [id number]/CPS #: [id number] MICHELET
[2019-04-08] MEDS ORDERED: Ibuprofen TAB* 600 MG PO ONE (20:58)
[2019-04-08] MEDS: Heparin VIAL(*) 5000 UNITS/ML VIAL (FIVE THOUSAND) SUBCUT SCH (21:24)
[2019-04-09] MEDS: Lactated Ringers 1000 ML Bag* 1,000 ML IV SCH (01:31)
[2019-04-09] MEDS ORDERED: Cefepime 1 GM in Dextrose(*) 1 GM/50 ML BAG IV SCH (02:00)
[2019-04-09 02:44] LABS: Troponin I 0.36 ng/mL (<0.03)
[2019-04-09] MEDS ORDERED: Ibuprofen TAB* 600 MG PO ONE (06:05)
[2019-04-09 06:18] LABS: ABS Eosinophils 0.1 10^3/ul (0-0.6); ABS Lymphocytes 2.2 10^3/ul (1.0-4.8); ABS Monocytes 0.7 10^3/ul (0-0.8); ABS Neutrophils 5.5 10^3/ul (1.5-7.7); Eosinophil % 0.8 %; Hematocrit 32 % (35-47); Hemoglobin 10.3 g/dL (12.0-16.0); Lymphocyte % 26.2 %; Mean Corpuscular HGB Conc 33 g/dL (31-36); Mean Corpuscular Hemoglobin 26 pg (27-31); Mean Corpuscular Volume 81 fL (80-97); Mean Platelet Volume 7.4 fL (7.4-10.4); Nucleated Red Blood Cells % 0.1; Platelet Count 162 10^3/uL (150-450); Red Blood Count 3.93 10^6 /uL (3.70-4.87); Red Cell Distribution Width 18 % (10-15); White Blood Count 8.5 10^3/uL (3.5-10.8)
[2019-04-09] MEDS: Heparin VIAL(*) 5000 UNITS/ML VIAL (FIVE THOUSAND) SUBCUT SCH (06:26)
[2019-04-09] MEDS: Insulin LISPRO* 1 UNITS UNIT SUBCUT SCH ×2 (06:26→11:39)
[2019-04-09 06:36] LABS: ALT 62 U/L (7-52); AST 34 U/L (13-39); Albumin 3.3 g/dL (3.2-5.2); Albumin/Globulin Ratio 1.6 (1-3); Alkaline Phosphatase 84 U/L (34-104); BUN/Creatinine Ratio 20.6 (8-20); Blood Urea Nitrogen 14 mg/dL (6-24); CO2 Carbon Dioxide 17 mmol/L (22-32); Calcium 7.4 mg/dL (8.6-10.3); EGFR African American 110.8 (>60); EGFR Non-African American 91.6 (>60); Globulin 2.1 g/dL (2-4); Glucose 157 mg/dL (70-100); Magnesium 2.1 mg/dL (1.9-2.7); Potassium 3.8 mmol/L (3.5-5.0); Sodium 138 mmol/L (135-145); Total Protein 5.4 g/dL (6.4-8.9)
[2019-04-09 06:38] LABS: Anion Gap 6 mmol/L (2-11); Chloride 115 mmol/L (101-111)
[2019-04-09 07:32] LABS: Troponin I 0.29 ng/mL (<0.03)
[2019-04-09] MEDS ORDERED: Perflutren Lipid Microsphere* 3 ML VIAL ONE (08:05)
[2019-04-09] MEDS ORDERED: Pantoprazole IV* 40 MG IV SCH (09:00)
--- NOTE | 2019-04-09 09:01 | ECHO ---
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 History: Hypotension. Risk factors: Current tobacco use. Diabetes mellitus. Dyslipidemia. Conclusions Summary: - Left ventricle: Systolic function is at the lower limits of normal. The estimated ejection fraction is 50-55%. Wall motion is normal; there are no regional wall motion abnormalities. - Right ventricle: Systolic function is mildly reduced. - Ventricular septum: There is septal flattening of the interventricular septum consistent with RV volume or pressure overload. - Mitral valve: There is no significant regurgitation. - Aortic valve: There is no evidence of stenosis. - Tricuspid valve: There is no significant regurgitation. - Pericardium, extracardiac: There is no significant pericardial effusion. - Pulmonary arteries: Systolic pressure can not be accurately estimated. - Study data: No prior study is available for comparison. Study data: Transthoracic echocardiogram. Procedure: Transthoracic echocardiography was performed. Image quality was adequate. Intravenous Definity , 2 mls was administered. Image enhancement administered by NEIL Keanecommunity life director. Complete 2D, spectral Doppler, and color flow Doppler. Location: ICU Patient status: Inpatient. Patient room number: 9. No prior study is available for comparison. Rhythm: Normal sinus rhythm. Findings Left ventricle: The cavity size is mildly reduced. Wall thickness is mildly increased. Systolic function is at the lower limits of normal. The estimated ejection fraction is 50-55%. Wall motion is normal; there are no regional wall motion abnormalities. There is no consistent Doppler evidence of clinically significant diastolic dysfunction. Right ventricle: The cavity size is normal. Systolic function is mildly reduced. Ventricular septum: There is septal flattening of the interventricular septum consistent with RV volume or pressure overload. Left atrium: The atrium is normal in size. Right atrium: The atrium is normal in size. Mitral valve: The leaflets are normal thickness. There is no evidence of stenosis. There is no significant regurgitation. Aortic valve: Not well visualized. The leaflets are normal thickness. There is no evidence of stenosis. There is no significant regurgitation. Tricuspid valve: The leaflets are normal thickness. There is no evidence of stenosis. There is no significant regurgitation. Pulmonic valve: Not well visualized. There is no significant regurgitation. Aorta: The aortic root appears normal. The aortic arch appears normal. Pericardium: There is no significant pericardial effusion. Pulmonary arteries: Systolic pressure can not be accurately estimated. Systemic veins: Inferior vena cava: The vessel is dilated. There is (< 50%) respiratory change in the IVC dimension. Measurements Left ventricle Value Ref Aortic valve continued Value Ref DORA, LAX (L) 3.5 cm 3.8 - 5.2 VTI, S 20.7 cm --------- ESD, LAX 2.8 cm 2.2 - 3.5 Mean grad, S 3.0 mm Hg --------- FS, LAX (L) 20 % 27 - 45 Peak grad, S 6.0 mm Hg --------- PW, ED, LAX (H) 1.1 cm 0.6 - 0.9 E', lat mel, TDI (L) 4.8 cm/sec >=10.0 Mitral valve Value R ef E/e', lat mel, 11 Peak E 0.51 m/sec ---- ----- TDI Peak A 0.78 m/sec --------- E', med mel, TDI (L) 4.3 cm/sec >=7.0 Decel time 98 ms - -------- E/e', med mel, 12 Peak E/A ratio 0.7 ---- ----- TDI E', avg, TDI 4.6 cm/sec Pulmonic valve Value Ref E/e', avg, TDI 11 <=14 Peak v, S 0.51 m/sec - -------- Peak grad, S 1.0 mm Hg --------- LVOT Value Ref Peak wm, S 0.8 m/sec Aortic root Value Ref Mean grad, S 1 mm Hg Root diam 2.9 cm <3.9 Root max 1.7 cm/m^2 1.4 - 2.2 Ventricular septum Value Ref diam/bsa, ED IVS, ED (H) 1.1 cm 0.6 - 0.9 Ascending aorta Value Ref Right ventricle Value Ref AAo AP diam, S 3.1 cm --------- DORA, LAX 2.1 cm AAo AP 1.8 cm/m^2 --------- diam/bsa, S Left atrium Value Ref AP dim, ES (L) 2.30 cm 2.70 - Aortic arch Value Ref 3.80 Arch diam 2.7 cm --------- ML dim, A4C 3.4 cm SI dim, A4C 4.8 cm Decending aorta Value Ref Vol/bsa, ES, A/L 26 ml/m^2 16 - 34 Falguni peak wm 0.56 m/sec --------- Aortic valve Value Ref Inferior vena cava Value Ref Mel diam, ED 1.9 cm Diam 2.3 cm --------- Mel diam/bsa, ED 1.1 cm/m^2 Peak v, S 1.19 m/sec Legend: (L) and (H) malina values outside specified reference range. Prepared and electronically signed by Gurpreet Worley MD 04/09/2019 09:00
[2019-04-09] MEDS ORDERED: Acetaminophen TAB* 325 MG PO PRN (11:02)
[2019-04-09] MEDS ORDERED: Furosemide IV* 10 MG/ML 10 ML VIAL (100 MG) IV ONE (11:03)
[2019-04-09] MEDS ORDERED: Potassium Phosphate IV* 15 MMOLE in NS 0.9% 250 ML* 250 ML IVPB ONE (11:30)
[2019-04-09] MEDS ORDERED: Adenosine* 3 MG/ML VIAL ONE (12:09)
[2019-04-09] MEDS ORDERED: Diltiazem IV push/loading dose 5 MG/ML 5 ML vial (25 mg) ONE (12:14)
[2019-04-09] MEDS ORDERED: Morphine INJ* 4 MG/ML 1 ML SYRINGE (NEW SYRINGE VERSION) ONE (12:19)
[2019-04-09] MEDS ORDERED: Norepinephrine VIAL* 1 MG/ML 4 ML VIAL ONE ×2 (12:20→12:36)
[2019-04-09] MEDS ORDERED: Etomidate* 2 MG/ML 10 ML VIAL ONE (12:20)
[2019-04-09] MEDS ORDERED: EPINEPHrine SYR 0.1MG/ML* SYRINGE ONE ×5 (12:20→13:05)
[2019-04-09] MEDS ORDERED: Norepinephrine 16MCG/ML IVPRE* 4,000 MCG/250 ML BAG IV ONE (12:28)
[2019-04-09] MEDS ORDERED: Sodium Bicarbonate 8.4%* 50 ML SYRINGE ONE ×4 (12:36→13:05)
[2019-04-09] MEDS ORDERED: Alteplase* 100 MG VIAL ONE (12:40)
[2019-04-09] MEDS ORDERED: Sodium Bicarbonate 8.4% IV* 50 ML VIAL ONE (13:04)
--- NOTE | 2019-04-09 13:42 | DS ---
Presented with hypothermia to 91 degrees, leukocytosis, DOMITILA, hypotension to 60/ 40 and lactic acidosis to 5.8 with mildly elevated troponin. She was admitted to the ICU by me with a working dx of severe sepsis / septic shock of probable urinary source with recent outpt UTI dx presenting on nitrofurantoin. She was treated with broad Abx and fluids with serial lactates showing rapid clearance in her first hours of admission. She did well overnight and this AM was awake on room air with mild HTN and WBC down from 13 to 8. Her DOMITILA had resolved and HRs were in the 100s with RR around 20 and SaO2 of 98% still on room air. ECHO I had ordered on admission being read today as thick LV with EF 50-55% and normal RV size with mild RV hypokinesis. CXR with some perihilar vascular engorgement to my eye and mild edema to exam in strong positive balance from her sepsis resuscitation I DC'd IVF and gave lasix. She continued to do well with diuresis and feeling well enough to get out of bed and go to the bathroom. After going to the toilet she developed a narrow complex tachycardia to 169 coupled with dyspnea and desaturation for which myself and MECHANICAL INTERN Doto were called immediately to the bedside. With evidence of likely diastolic dysfunction on ECHO and clinical scenario consistent with that diagnosis secondary to primary tachycardia she was treated with adenosine 6mg to no effect followed by 12mg to no effect through an IV in left AC. Still not knowing if this was sinus or arrhythmia but favoring arrhythmia with the loss of variability I ordered cardizem 10mg slow push which was given over 2 mins. In the following minutes her HR slowed at a measured rate from the 169 to the 120s with a clear sinus mechanism and she reported feeling better initially but then the rate continued to fall in when she was sinus in the 80's she lost consciousness and vomited. We immediately began to clear her airway and bag her with 100% oxygen, we noted PEA and initiated CPR. ACLS was initiated and I intubated with a MAC 4 and 7.5 ETT with VCV and BLEBS with silent abdomen though EtCO2 remained low around 10- 12. Multiple members of the team confirmed BLEBS to assure the tube was not the problem. It was at this point that we decided that massive pulmonary embolism was the best working diagnosis. Bedside ECHO showed RV enlargement and empty LV as well. I ordered 50mg of IV TPA which I personally pushed. Standard ACLS continued along with placement of an RV pacer wire by Dr. Worley which did ultimately achieve capture. She was treated exhaustively with inotropes, chronotropes, roughly 500mEq of NaHCO3 and excellent CPR. As EtCO2 remained low multiple examiners confirmed ongoing placement repeatedly throughout her resuscitation. About jail through the code the EtCO2 aundrea to 30s and at times then the 40s indicating to us that the clot had finally lysed. We used this as predicate to engage in a prolonged code ultimately lasting just over 60 minutes. She developed a pleth and a BP but these were only present during CPR. When pacer was held asystole was the underlying rhythm. I communicated with throughout the code as he had been present at the bedside for all the events preceding the arrest and was just outside the room with clergy during the resuscitation. I was continuously with Vashti from the moments after she went to the bathroom until the pronouncement of her over an hour later except for the moments I briefly left the room to keep the updated on events. Ultimately resuscitative efforts were ceased at 1321 hrs. Autopsy was declined. I discussed with the in detail after the events as well as with the arriving family members to console them and answer their questions to which they voiced understanding and appreciation for our efforts which I found extraordinarily gracious under the circumstances. Dx 1. Cardiogenic Shock secondary to massive pulmonary embolism. 2. Severe sepsis undifferentiated 3. Diabetes 4. HTN 5. Hyperlipidemia
[2019-04-09 15:26] VITALS: BP 36/17
--- NOTE | 2019-04-09 20:31 | PRO ---
CRITICAL CARE NOTE AND PROCEDURE NOTE: DATE OF STUDY: 04/09/19 - ROOM #ICU-09 One hour of critical care and temporary pacemaker wire placement. INDICATION: ABC alert, asystole, respiratory failure. The patient is a 48-year-old female who was admitted to the hospital yesterday. I was called to the bedside for an ABC alert. The patient was asystolic and having external compressions when I arrived. She was under the care of Dr. Cano, who was in the midst of intubating the patient on my arrival. At the time of my arrival, the patient was undergoing CPR. Her pulses were palpable in her femoral and carotid area. When CPR was stopped, the patient was in severe bradycardia with no palpable pulses. CPR and other life saving measures were continued. She was intubated, multiple IVs were placed. The patient was given multiple treatments of epinephrine and sodium bicarb for her asystole and PEA. Ultimately, the patient was diagnosed with severe bradycardia and temporary wire was requested. Again, the patient was intubated. She was actively being Ambu bagged through the ET tube. Chest compressions were going on. Her right anterior neck area was prepped and draped as well as it could be done during CPR. The jugular vein was entered by Seldinger technique and a guidewire was placed. Over the guidewire, a 5 Bengali sheath introducer was placed. The 5 Bengali sheath introducer was sutured in position. A bipolar temporary pacer wire was inserted through the IJ sheath and advanced with balloon inflated and active pacing into the right ventricle. Initially it took a while to get the right ventricular capture, but ultimately had capture at 100 beats per minute with an output of 10 millivolts. This was on the same setting throughout the rest of the ABC alert. Ultimately, the patient despite multiple rounds of epinephrine and bicarbonate. The patient did get tPA for presumed pulmonary embolism as a cause for her ABC alert. All extraordinary measures were done. Despite this, the patient . A total of 1 hour of critical care time was spent. PROCEDURE: Temporary wire placement. I could not get informed consent at the time of the procedure as it was an emergency procedure. [id number]/[facility] #: [id number] [place]
== END 2019-04-09 13:21 | disposition expired | DRG 720 ==
LOC: ED 12:59 → ICU 15:00
PROVIDERS: ADMIT Internal Medicine Critical Care Medicine; ATTEND Internal Medicine Critical Care Medicine
PROC: 5A1223Z Performance of Cardiac Pacing, Continuous (ICD-10-PCS; principal; 2019-04-09)
DX: A41.9 Sepsis, unspecified organism (principal); R65.21 Severe sepsis with septic shock; I26.99 Other pulmonary embolism without acute cor pulmonale; R00.1 Bradycardia, unspecified; I10 Essential (primary) hypertension; E11.9 Type 2 diabetes mellitus without complications; K21.9 Gastro-esophageal reflux disease without esophagitis; R57.0 Cardiogenic shock; E78.5 Hyperlipidemia, unspecified; Z88.0 Allergy status to penicillin; Z88.1 Allergy status to other antibiotic agents; Z87.891 Personal history of nicotine dependence
CPT/HCPCS: 36415; 71045; 80053; 81003; 81015; 82803; 83605; 83735; 84100; 84484; 85025; 87040; 87086; 87641; 93005; 93306; 96365; 96375; 99285; A9270-GY; C8929; J0153; J0171; J0610; J0692; J1644; J1940; J2270; J2997; J3475